=== PATIENT | male | born 1955 | race Caucasian/White ===

== ENCOUNTER 2017-02-22 13:29 | Outpatient (CLI) | payer OTHER | END 2017-02-22 13:30 | disposition home or self-care (01) | LOC: RT 13:29 | PROVIDERS: ATTEND Nurse Anesthetist, Certified Registered | DX: Z01.810 Encounter for preprocedural cardiovascular examination (principal); Z79.899 Other long term (current) drug therapy | CPT/HCPCS: 93005 ==

== ENCOUNTER 2017-02-28 07:19 | Day surgery (SDC) | payer OTHER ==
[2017-02-28] MEDS ORDERED: LACTATED RINGERS 1,000 ML IV ONE ×2 (07:24→10:04)
[2017-02-28] MEDS ORDERED: BUPIVACAINE 0.25%-EPI 1:200000 PF 30 ML VIAL SUBQ ONE ×2 (07:42)
[2017-02-28] MEDS ORDERED: SCOPOLAMINE PATCH TOP ONE (07:59)
[2017-02-28] MEDS ORDERED: ONDANSETRON 4 MG/2 ML VIAL IVP ONE (09:00)
[2017-02-28] MEDS ORDERED: LIDOCAINE-MPF 2% 5 ML VIAL IM ONE (09:00)
[2017-02-28] MEDS ORDERED: fentaNYL 100 MCG/2 ML VIAL IVP ONE (09:00)
[2017-02-28] MEDS ORDERED: KETOROLAC 30 MG/ML VIAL IVP ONE (09:00)
[2017-02-28] MEDS ORDERED: MIDAZOLAM 2 MG/2 ML VIAL IVP ONE (09:00)
[2017-02-28] MEDS ORDERED: PROPOFOL 200 MG/20 ML VIAL IVP ONE (09:00)
[2017-02-28] MEDS ORDERED: ACETAMINOPHEN 1,000 MG/100 ML 100 ML IV ONE (09:00)
[2017-02-28] MEDS ORDERED: DEXAMETHASONE 4 MG/ML VIAL IVP ONE (09:00)
[2017-02-28] MEDS: fentaNYL 100 MCG/2 ML VIAL ONE ×2 (10:14→10:31)
[2017-02-28] MEDS ORDERED: ONDANSETRON 4 MG/2 ML VIAL ONE (10:44)
[2017-02-28] MEDS ORDERED: HYDROcod/ACETAM 5/325 MG TABLET ONE (10:59)
[2017-02-28 11:47] VITALS: BP 172/89
--- NOTE | 2017-03-01 08:45 | OPERATIVE REPORT ---
DATE OF SERVICE: 02/28/2017 Physician: Alon Ceja MD DATE OF SURGERY: 02/28/2017 PREOPERATIVE DIAGNOSIS: Right ankle retained hardware in the medial malleolus and the fibula. POSTOPERATIVE DIAGNOSIS: Right ankle retained hardware in the medial malleolus and the fibula. PROCEDURE PERFORMED: Hardware removal from right ankle through 2 separate incisions medial and later al. SURGEON: Alon Ceja MD. ANESTHESIA: General, by Manoj Perez. INDICATIONS FOR SURGERY: The patient is a 62-year-old male with a healed right bimalleolar ankle fra cture, who presents with ankle pain due to retained hardware. He desires hardware removal. DESCRIPTION OF OPERATIVE PROCEDURE: The patient was taken to the operating room, given a general ane sthetic. He was in the supine position and a tourniquet was not used. A bolster was placed below his right hi p. His ankle was sterilely prepped and draped in standard fashion. After a surgical timeout, both medial and lateral incisions were made to expose hardware. The latera l side hardware was removed fairly uneventfully, removing the plate and finding the fracture well healed and remodeled. The medial side hardware was very difficult to remove due to deep placement of one of the pins requiring mini C-arm imaging to localize and remove that pin. The medial-side had healed well, and t he ankle joint cartilage appeared intact and the ankle was stable. The hardware ultimately was all removed. Irrigation was performed in the wounds, and closure was with a very limited amount of subcutaneous Vi cryl, followed by lorna. Sterile dressings were applied. The patient was placed in a below knee well-pa dded ankle splint and taken to the recovery room in stable condition. ESTIMATED BLOOD LOSS: Minimal. COMPLICATIONS: None. COUNTS: Sponge and needle counts correct. TD: 03/01/2017 08:47
== END 2017-02-28 07:20 | disposition home or self-care (01) ==
LOC: SDS 07:19
PROVIDERS: ATTEND Orthopaedic Surgery
PROC: 0SPF04Z Removal of Internal Fixation Device from Right Ankle Joint, Open Approach (ICD-10-PCS; principal; 2017-02-28 08:30)
DX: T84.81XA Embolism due to internal orthopedic prosthetic devices, implants and grafts, initial encounter (principal); T84.84XA Pain due to internal orthopedic prosthetic devices, implants and grafts, initial encounter; I25.10 Atherosclerotic heart disease of native coronary artery without angina pectoris; Z95.1 Presence of aortocoronary bypass graft; F17.210 Nicotine dependence, cigarettes, uncomplicated; I10 Essential (primary) hypertension
CPT/HCPCS: 20680; A9270; J0131; J3490; J7120

== ENCOUNTER 2017-03-04 09:51 | Emergency (ER) | payer OTHER ==
[2017-03-04 10:23] LABS: BASOPHILS # (AUTO) 0.1 10^3/uL (0.0-0.1); BASOPHILS % (AUTO) 0.8 %; EOSINOPHILS # (AUTO) 0.3 10^3/uL (0.0-0.7); EOSINOPHILS % (AUTO) 1.9 %; LYMPHOCYTES % (AUTO) 14.3 %; MEAN CORPUSCULAR HEMOGLOBIN 30.5 pg (27.0-31.0); MEAN CORPUSCULAR VOLUME 89.6 fL (80.0-94.0); MEAN PLATELET VOLUME 9.1 fL (7.4-11.4); MONOCYTES # (AUTO) 0.5 10^3/uL (0.0-1.0); MONOCYTES % (AUTO) 3.6 %; NEUTROPHILS # (AUTO) 11.2 10^3/uL (1.5-6.6); NEUTROPHILS % (AUTO) 79.4 %; PLT - PLATELET COUNT 227 10^3/uL (130-450); RED BLOOD COUNT 5.59 10^6/uL (4.70-6.10); RED CELL DISTRIBUTION WIDTH 14.3 % (12.0-15.0); WHITE BLOOD COUNT 14.2 x10^3/uL (4.8-10.8)
[2017-03-04 10:29] LABS: ALBUMIN 4.1 g/dL (3.2-5.5); ALBUMIN/GLOBULIN RATIO 1.1 (1.0-2.2); BILIRUBIN,TOTAL 0.9 mg/dL (0.2-1.0); CALCIUM 9.9 mg/dL (8.5-10.3); CREATININE 1.3 mg/dL (0.6-1.2)
--- NOTE | 2017-03-04 10:37 | ED Physician Documentation ---
PD HPI DYSPNEA - Stated complaint Stated Complaint: NAUSEA,VOMITING,DIZZINESS - Chief complaint Chief Complaint: Allergic Rx - History obtained from History obtained from: Patient, Family - History of Present Illness Timing - onset: Today Timing - onset during: Rest Timing - duration: Hours, Days Timing - details: Gradual onset, Still present Inciting event(s): Other (recent surgery to remove hardware. Alcohol withdrawal day #4.) Worsened by: Exertion Associated symptoms: Palpitations, Diaphoresis. No: Fever, Cough, Wheezing, Chest pain / discomfort Similar symptoms before: Has not had sx before Recently seen: Surgery - Additional information Additional information: 62-year-old male has had surgery to remove hardware from his right ankle done 3 days ago. He indicates that he usually drinks vodka and beer daily and regularly. He stopped cold turkey prior to his operation. He is on day #4 of alcohol withdrawal. He is having good control of his pain and is able to bear weight on his foot. He does not feel well and he has developed some shortness of breath associated with diaphoresis. He denies any chest pain. He did try to drink beer this morning when he found out that he thought he was suffering from alcohol withdrawal and he probably vomited. He still has some nausea. Review of Systems Constitutional: denies: Fever, Myalgias Eyes: denies: Decreased vision Ears: denies: Ear pain Nose: denies: Rhinorrhea / runny nose, Congestion Throat: reports: Other (voice is higher). denies: Sore throat Cardiac: reports: Palpitations. denies: Chest pain / pressure Respiratory: reports: Dyspnea. denies: Cough GI: reports: Nausea, Vomiting. denies: Abdominal Pain : denies: Dysuria, Frequency Skin: denies: Rash Musculoskeletal: reports: Extremity pain, Pain with weight bearing. denies: Neck pain, Back pain Neurologic: denies: Generalized weakness, Focal weakness, Numbness PD PAST MEDICAL HISTORY - Past Medical History Cardiovascular: High cholesterol, Coronary artery disease, Angina Respiratory: None Neuro: None Endocrine/Autoimmune: None GI: GERD : Benign prostate hypertrophy HEENT: None Psych: None Musculoskeletal: None Derm: None, Other - Past Surgical History Past Surgical History: Yes Ortho: Rotator cuff repair Cardiovascular: CABG - Present Medications Home Medications: Ambulatory Orders Medication Instructions Recorded Confirmed Atorvastatin [Lipitor] 20 tab PO QPM 06/05/14 02/28/17 Carvedilol [Coreg] 25 mg PO BID 06/05/14 02/28/17 Clopidogrel [Plavix] 75 mg PO DAILY 06/05/14 02/28/17 Lisinopril 40 mg PO DAILY 06/05/14 02/28/17 amLODIPine [Norvasc] 10 mg PO DAILY 06/05/14 02/28/17 hydroCHLOROthiazide 50 mg PO DAILY 06/05/14 02/28/17 [Hydrochlorothiazide] Aspirin EC [Ecotrin] 325 mg PO BID #60 tablet 11/12/15 Lorazepam [Ativan] 1 - 2 mg PO Q6HR PRN #30 tablet 03/04/17 - Allergies Allergies/Adverse Reactions: Allergies Allergy/AdvReac Type Severity Reaction Status Date / Time No Known Drug Allergies Allergy Verified 11/10/15 09:55 - Social History Does the pt smoke?: Yes Smoking Status: Current every day smoker Does the pt drink ETOH?: Yes Does the pt have substance abuse?: No - Immunizations Immunizations are current?: Yes - POLST Patient has POLST: No PD ED PE NORMAL - Vitals Vital signs reviewed: Yes (hypertensive ) - General General: Alert and oriented X 3, No acute distress, Well developed/nourished - HEENT HEENT: Atraumatic, PERRL, EOMI, Other (dry mucous membranes) - Neck Neck: Supple, no meningeal sign, No bony TTP - Cardiac Cardiac: RRR, No murmur - Respiratory Respiratory: No respiratory distress, Clear bilaterally, Other (well healed CABG scar) - Abdomen Abdomen: Soft, Non tender - Back Back: No CVA TTP, No spinal TTP - Derm Derm: Normal color, Warm and dry, No rash - Extremities Extremities: No deformity, Other (There are bandages to the right LE and these are not taken down for examination. The distal n/v is intact. ) - Neuro Neuro: No motor deficit, No sensory deficit Eye Opening: Spontaneous Motor: Obeys Commands Verbal: Oriented GCS Score: 15 - Psych Psych: Normal mood, Normal affect Results - Vitals Vitals: Vital Signs - 24 hr 03/04/17 03/04/17 03/04/17 09:58 11:32 11:59 Temperature 36.5 C Heart Rate 60 96 109 H Respiratory 20 18 16 Rate Blood Pressure 133/111 H 117/78 117/78 O2 Saturation 98 95 96 03/04/17 03/04/17 03/04/17 13:29 14:14 14:23 Temperature 36.8 C Heart Rate 60 103 H 84 Respiratory 18 18 Rate Blood Pressure 125/93 H 122/90 H 116/86 H O2 Saturation 96 94 03/04/17 03/04/17 03/04/17 14:28 14:33 14:47 Temperature Heart Rate 72 84 96 Respiratory Rate Blood Pressure 109/88 H 110/88 H 126/95 H O2 Saturation 03/04/17 03/04/17 03/04/17 15:00 17:00 17:07 Temperature Heart Rate 80 105 H 101 H Respiratory 18 Rate Blood Pressure 118/96 H 127/75 123/92 H O2 Saturation 99 03/04/17 03/04/17 03/04/17 17:20 17:30 17:32 Temperature Heart Rate 80 76 77 Respiratory 20 19 21 Rate Blood Pressure 120/86 H 120/84 H 140/79 H O2 Saturation 96 95 97 03/04/17 03/04/17 17:51 17:52 Temperature Heart Rate 80 80 Respiratory 16 16 Rate Blood Pressure 120/79 149/89 H O2 Saturation 95 95 Oxygen O2 Source [] RA, increased to 95% O2 Source [] on RA, increased to 95% O2 Source Room air - EKG (time done) 1015 Rate: Rate (enter#) (102) Rhythm: Atrial fibrillation Ischemia: ST depression Compare to prior EKG: Unchanged from prior EKG (SPT 12-27-[address] depression and afib have developed. ) Computer interpretation: Agree with computer - Labs Labs: Laboratory Tests 03/04/17 03/04/17 03/04/17 10:10 10:10 10:10 WBC 14.2 H RBC 5.59 Hgb 17.0 Hct 50.1 MCV 89.6 MCH 30.5 MCHC 34.0 RDW 14.3 Plt Count 227 MPV 9.1 Neut # 11.2 H Lymph # 2.0 [place] # 0.5 Eos # 0.3 Baso # 0.1 Absolute Nucleated RBC 0.00 Nucleated RBC % 0.0 Sodium 139 Potassium 3.9 Chloride 99 L Carbon Dioxide 26 Anion Gap 14.0 H BUN 19 Creatinine 1.3 H Estimated GFR (MDRD) 56 L Glucose 146 H Calcium 9.9 Total Bilirubin 0.9 AST 19 ALT 21 Alkaline Phosphatase 71 Troponin I < 0.04 Total Protein 8.0 Albumin 4.1 Globulin 3.9 Albumin/Globulin Ratio 1.1 Lipase 17 L Urine Color Urine Clarity Urine pH Ur Specific [place] Urine Protein Urine Glucose (UA) Urine Ketones Urine Occult Blood Urine Nitrite Urine Bilirubin Urine Urobilinogen Ur Leukocyte Esterase Urine RBC Urine WBC Ur Squamous Epith Cells Urine Bacteria Urine Casts Ur Microscopic Review Urine Culture Comments 03/04/17 13:10 WBC RBC Hgb Hct MCV MCH MCHC RDW Plt Count MPV Neut # Lymph # [place] # Eos # Baso # Absolute Nucleated RBC Nucleated RBC % Sodium Potassium Chloride Carbon Dioxide Anion Gap BUN Creatinine Estimated GFR (MDRD) Glucose Calcium Total Bilirubin AST ALT Alkaline Phosphatase Troponin I Total Protein Albumin Globulin Albumin/Globulin Ratio Lipase Urine Color YELLOW Urine Clarity CLEAR Urine pH 7.0 Ur Specific [place] 1.020 Urine Protein 30 H Urine Glucose (UA) NEGATIVE Urine Ketones NEGATIVE Urine Occult Blood NEGATIVE Urine Nitrite NEGATIVE Urine Bilirubin NEGATIVE Urine Urobilinogen 0.2 (NORMAL) Ur Leukocyte Esterase NEGATIVE Urine RBC 0-5 Urine WBC 0-3 Ur Squamous Epith Cells RARE Squamous Urine Bacteria Rare Urine Casts 6-10 Hyaline Casts Ur Microscopic Review INDICATED Urine Culture Comments NOT INDICATED Procedures - IVC sono (time) 1015 Bedside IVC sono: IVC measures (cm) (0.98), IVC collapsed c insp (cm) (complete) , Dehydration PD MEDICAL DECISION MAKING - ED course Complexity details: reviewed old records, reviewed results, re-evaluated patient , considered differential, d/w patient, d/w family ED course: 62-year-old male with what appears to be acute alcohol withdrawal is also a bit dehydrated. He is administered an intravenous banana bag and 2 mg of Ativan. He has marked improvement with the use of the Ativan and despite improvement in his volume his rate still is over 110 and he is in atrial fibrillation. He is not normally in atrial fibrillation and does not have a prior history of atrial fibrillation. He is administered diltiazem 20 mg intravenously with reduction in his rate and he does not convert. He is subsequently administered a second dose of diltiazem 25 mg intravenously and his rate is well controlled in the 80s but he still does not convert. I have discussed with the patient that it appears he is tolerating this rhythm and the expectation is that he will convert in the next 1-2 days and he can safely do this as an outpatient. He will follow-up with his primary if he is not back in sinus rhythm in 2 days time. He had prompt improvement in his withdrawal symptoms with 2 mg of intravenous Ativan and this did last for the duration of his emergency department visit. The patient's [id number] score is 2 for htn and prior GA and he is currently on aspirin and has had recent surgery. He is not anti-coagulated today. Departure - Departure Disposition: 01 Home, Self Care Clinical Impression: New onset a-fib Alcohol withdrawal Qualifiers: Complication of substance-induced condition: with unspecified complication Qualified Code(s): F10.239 - Alcohol dependence with withdrawal, unspecified Condition: Stable Instructions: ED Afib, ED Withdrawal Alcohol Follow-Up: JOLENE VINCENT MD [Primary Care Provider] - Prescriptions: Lorazepam [Ativan] 1 - 2 mg PO Q6HR PRN #30 tablet PRN Reason: withdrawal symptoms Comments: Today you are in atrial fibrillation and your rate appears well controlled and you appear to be "tolerating" it. We expect you will convert to a normal rhythm in the next day. Follow up with your primary care doctor on Monday for re- evaluation. Your doctor will talk to you about anti-coagulation and your risk for stroke and may refer you to a exercise planner.
[2017-03-04] MEDS ORDERED: LORazepam 2 MG/ML VIAL IVP STA ×2 (10:58→18:19)
[2017-03-04] MEDS ORDERED: MAGNESIUM SULFATE 2 GRAM 2 GM/50 ML BAG IV STA (11:00)
[2017-03-04] MEDS ORDERED: MULTIVITAMIN 10 ML in SODIUM CHLORIDE 0.9% 1,000 ML IV STA (11:00)
[2017-03-04] MEDS ORDERED: THIAMINE INJ 100 MG, FOLIC ACID INJ 1 MG in SODIUM CHLORIDE 0.9% 100ML 100 ML IV STA (11:00)
[2017-03-04] MEDS ORDERED: THIAMINE 100 MG/1 ML 2 ML MDV ONE (11:27)
[2017-03-04 13:21] LABS: BILIRUBIN,URINE NEGATIVE (NEGATIVE); GLUCOSE, URINE (UA) NEGATIVE (NEGATIVE); KETONES,URINE (UA) NEGATIVE (NEGATIVE); LEUKOCYTE ESTERASE, URINE NEGATIVE (NEGATIVE); NITRITE,URINE NEGATIVE (NEGATIVE); OCCULT BLOOD,URINE NEGATIVE (NEGATIVE); PROTEIN,URINE 30 mg/dL (NEGATIVE); UROBILINOGEN,URINE 0.2 (NORMAL) E.U./dL (NORMAL)
[2017-03-04 13:34] LABS: CLARITY,URINE CLEAR (CLEAR)
[2017-03-04 13:47] LABS: BACTERIA,URINE Rare /HPF (None Seen); CASTS, URINE 6-10 Hyaline Casts /LPF; RBC,URINE 0-5 /HPF (0-5); SQUAMOUS EPITHELIAL CELL,UR RARE Squamous (<= Few)
[2017-03-04] MEDS ORDERED: diltiaZEM INJ 5 MG/ML VIAL IVP STA ×2 (14:04→16:53)
[2017-03-04 18:53] VITALS: BP 148/92
== END 2017-03-04 18:51 | disposition home or self-care (01) ==
LOC: ED 09:51
DX: I48.91 Unspecified atrial fibrillation (principal); F10.239 Alcohol dependence with withdrawal, unspecified; E78.00 Pure hypercholesterolemia, unspecified; I25.10 Atherosclerotic heart disease of native coronary artery without angina pectoris; Z95.1 Presence of aortocoronary bypass graft
CPT/HCPCS: 36415; 80053; 81001; 83690; 84484; 85025; 93005; 96365; 96367; 96368; 96375; 96376; 99285; J2060; J3411; 81003; 87086

== ENCOUNTER 2021-12-02 12:28 | Emergency (ER) | payer OTHER ==
[2021-12-02] MEDS ORDERED: EPINEPHrine 1 MG/ML AMP IM STA (12:48)
[2021-12-02] MEDS ORDERED: diphenhydrAMINE INJ 50 MG/ML VIAL IVP STA (12:48)
[2021-12-02] MEDS ORDERED: FAMOTIDINE 20 MG/2 ML VIAL IVP STA (12:48)
[2021-12-02] MEDS ORDERED: methylPREDNISolone SUCCINATE 125 MG/2 ML VIAL IVP STA (12:48)
[2021-12-02] MEDS ORDERED: TRANEXAMIC ACID 1,000 MG in SODIUM CHLORIDE 0.9% 100ML 100 ML IV STA (12:50)
--- NOTE | 2021-12-02 12:54 | ED Physician Documentation ---
PD HPI HEENT - Stated complaint Stated Complaint: TOUNGE SWELLING - Chief complaint Chief Complaint: Resp - History obtained from History obtained from: Patient - History of Present Illness Timing - onset: Today (299) - Additional information Additional information: 66-year-old male with history of A. fib on Eliquis, hypertension, hyperlipidemia presents by private vehicle for tongue swelling since 299 today. Patient tried to take 2 Benadryl at home however this did not improve and so he presented to the ER for evaluation. Patient's states that this happened once before at an outside hospital after sinus surgery, she states that they were able to improve him with medications and he did not require intubation. Patient states that he can swallow with great difficulty, his voice sounds hoarse to him. He states he has no difficulty breathing however Review of Systems Ten Systems: 10 systems reviewed and negative Constitutional: denies: Fever, Chills, Myalgias Throat: reports: Other (Tongue swelling, hoarseness). denies: Dental pain / toothache, Oral lesions / sores, Sore throat Respiratory: denies: Dyspnea, Cough, Wheezing Skin: denies: Rash, Lesions, Abrasion (s) PD PAST MEDICAL HISTORY - Past Medical History Cardiovascular: High cholesterol, Coronary artery disease, Angina Respiratory: None Endocrine/Autoimmune: None GI: GERD : Benign prostate hypertrophy HEENT: None Psych: None Musculoskeletal: None Derm: None, Other - Past Surgical History Past Surgical History: Yes Ortho: Rotator cuff repair Cardiovascular: CABG - Present Medications Home Medications: Ambulatory Orders Medication Instructions Recorded Confirmed Atorvastatin [Lipitor] 20 tab PO QPM 06/05/14 02/28/17 Carvedilol [Coreg] 25 mg PO BID 06/05/14 02/28/17 Clopidogrel [Plavix] 75 mg PO DAILY 06/05/14 02/28/17 amLODIPine [Norvasc] 10 mg PO DAILY 06/05/14 02/28/17 hydroCHLOROthiazide 50 mg PO DAILY 06/05/14 02/28/17 [Hydrochlorothiazide] lisinopriL [Lisinopril] 40 mg PO DAILY 06/05/14 02/28/17 Aspirin EC [Ecotrin] 325 mg PO BID #60 tablet 11/12/15 Lorazepam [Ativan] 1 - 2 mg PO Q6HR PRN #30 tablet 03/04/17 - Allergies Allergies/Adverse Reactions: Allergies Allergy/AdvReac Type Severity Reaction Status Date / Time No Known Drug Allergies Allergy Verified 11/10/15 09:55 - Social History Does the pt smoke?: Yes Smoking Status: Current every day smoker Does the pt drink ETOH?: Yes Does the pt have substance abuse?: No - Immunizations Immunizations are current?: Yes - POLST Patient has POLST: No PD ED PE NORMAL - Vitals Vital signs reviewed: Yes - General General: Alert and oriented X 3, No acute distress, Well developed/nourished - HEENT HEENT: Atraumatic, PERRL, Other (grossly enlarged tongue) - Cardiac Cardiac: RRR, No murmur - Respiratory Respiratory: No respiratory distress, Clear bilaterally - Abdomen Abdomen: Soft, Non tender, Non distended - Derm Derm: Normal color, Warm and dry, No rash - Extremities Extremities: No deformity, No tenderness to palpate, Normal ROM s pain - Neuro Neuro: Alert and oriented X 3, gambling box person 2-12 intact, No motor deficit, No sensory deficit, Normal speech - Psych Psych: Normal mood, Normal affect Results - Vitals Vitals: Vital Signs - 24 hr 12/02/21 12/02/21 12/02/21 12:36 13:20 14:30 Temperature 2.5 C L Heart Rate 71 73 70 Respiratory 20 21 26 H Rate Blood Pressure 124/84 H 138/93 H 146/90 H O2 Saturation 98 97 97 12/02/21 12/02/21 12/02/21 16:10 16:30 17:30 Temperature Heart Rate 78 90 82 Respiratory 18 26 H 21 Rate Blood Pressure 145/95 H 135/97 H 147/94 H O2 Saturation 96 95 97 Oxygen O2 Source [With Activity] RA, increased to 95% O2 Source [Without Activity] on RA, increased to 95% O2 Source Room air - Labs Labs: Laboratory Tests 12/02/21 12/02/21 12/02/21 12:55 12:55 12:55 WBC 9.7 RBC 4.48 L Hgb 13.6 L Hct 40.3 L MCV 90.0 MCH 30.4 MCHC 33.7 RDW 13.9 Plt Count 207 MPV 10.7 Neut # (Auto) 6.8 H Lymph # (Auto) 1.9 [place] # (Auto) 0.6 Eos # (Auto) 0.3 Baso # (Auto) 0.1 Absolute Nucleated RBC 0.00 Nucleated RBC % 0.0 Sodium 141 Potassium 3.6 Chloride 101 Carbon Dioxide 30 Anion Gap 10.0 BUN 20 Creatinine 1.0 Estimated GFR (MDRD) 75 L Glucose 105 H Calcium 9.2 Total Bilirubin 1.2 H AST 18 ALT 19 Alkaline Phosphatase 79 Total Protein 7.3 Albumin 3.8 Globulin 3.5 Albumin/Globulin Ratio 1.1 Blood Type O POSITIVE Blood Type Recheck Antibody Screen NEGATIVE 12/02/21 13:14 WBC RBC Hgb Hct MCV MCH MCHC RDW Plt Count MPV Neut # (Auto) Lymph # (Auto) [place] # (Auto) Eos # (Auto) Baso # (Auto) Absolute Nucleated RBC Nucleated RBC % Sodium Potassium Chloride Carbon Dioxide Anion Gap BUN Creatinine Estimated GFR (MDRD) Glucose Calcium Total Bilirubin AST ALT Alkaline Phosphatase Total Protein Albumin Globulin Albumin/Globulin Ratio Blood Type Blood Type Recheck O POSITIVE Antibody Screen PD MEDICAL DECISION MAKING - ED course ED course: Patient presenting with angioedema. Patient has remarkable tongue swelling, however is able to breathe and is saturations are 99% on room air. Patient states that this happened 1 time in the past and they were able to correct it with medications. We will trial medication regimen, however if no improvement will aggressively control airway. 1320: Patient has received Solu-Medrol, epinephrine, Benadryl, Pepcid, TXA is hanging. Patient states that he is already feeling better and he can tell an improvement in his voice. Patient was observed for numerous hours in the emergency department, his tongue was observed to return back to normal size confirmed by the patient and his . Patient stated that he was ready to leave and eager to go home. Patient counseled that until the definitive cause of his angioedema can be found he is not to take any MORE inhibitors, or medicines and in "pril". He was counseled to follow-up with his primary care physician and to return immediately to the em ergency department if he noticed swelling in his tongue again. Patient discharged home to the care of his in stable condition - Critical Care Time(min): 30 Comments: Extremely close airway monitoring with frequent reassessments. Time Includes: Direct patient care, Reassess patient, Coordinate care Departure - Departure Disposition: 01 Home, Self Care Clinical Impression: Angioedema Condition: Stable Instructions: ED Angioedema Comments: You are seen today for swelling of your tongue, this is called angioedema. We were able to reverse the swelling with medications. From today onwards I do not recommend that you take any MORE inhibitors. These medications commonly end in "pril" like lisinopril. Please follow-up soon as possible with your primary care physician for medication changes for your blood pressure management. Discharge Date/Time: 12/02/21 17:35
[2021-12-02 13:01] LABS: BASOPHILS # (AUTO) 0.1 10^3/uL (0.0-0.1); BASOPHILS % (AUTO) 0.9 %; EOSINOPHILS # (AUTO) 0.3 10^3/uL (0.0-0.7); EOSINOPHILS % (AUTO) 3.2 %; HCT - HEMATOCRIT 40.3 % (42.0-52.0); HGB - HEMOGLOBIN 13.6 g/dL (14.0-18.0); LYMPHOCYTES # (AUTO) 1.9 10^3/uL (1.5-3.5); LYMPHOCYTES % (AUTO) 19.1 %; MEAN CORPUSCULAR HEMOGLOBIN 30.4 pg (27.0-31.0); MEAN CORPUSCULAR HGB CONC 33.7 g/dL (32.0-36.0); MEAN PLATELET VOLUME 10.7 fL (7.4-11.4); MONOCYTES # (AUTO) 0.6 10^3/uL (0.0-1.0); MONOCYTES % (AUTO) 5.7 %; NEUTROPHILS # (AUTO) 6.8 10^3/uL (1.5-6.6); NEUTROPHILS % (AUTO) 70.8 %; PLT - PLATELET COUNT 207 10^3/uL (130-450); RED BLOOD COUNT 4.48 10^6/uL (4.70-6.10); RED CELL DISTRIBUTION WIDTH 13.9 % (12.0-15.0); WHITE BLOOD COUNT 9.7 x10^3/uL (4.8-10.8)
[2021-12-02 13:16] LABS: ALBUMIN 3.8 g/dL (3.2-5.5); ALBUMIN/GLOBULIN RATIO 1.1 (1.0-2.2); BILIRUBIN,TOTAL 1.2 mg/dL (0.2-1.0); CALCIUM 9.2 mg/dL (8.5-10.3); POTASSIUM 3.6 mmol/L (3.5-5.0); TOTAL PROTEIN 7.3 g/dL (6.7-8.2)
[2021-12-02] MEDS ORDERED: TRANEXAMIC ACID 1,000 MG/10 ML VIAL ONE (13:17)
[2021-12-02 17:35] VITALS: BP 147/94
== END 2021-12-02 17:35 | disposition home or self-care (01) ==
LOC: ED 12:28
DX: T78.3XXA Angioneurotic edema, initial encounter (principal); I48.91 Unspecified atrial fibrillation; Z79.01 Long term (current) use of anticoagulants; I10 Essential (primary) hypertension; E78.5 Hyperlipidemia, unspecified; I25.10 Atherosclerotic heart disease of native coronary artery without angina pectoris; Z95.1 Presence of aortocoronary bypass graft; F17.200 Nicotine dependence, unspecified, uncomplicated; Z79.02 Long term (current) use of antithrombotics/antiplatelets; Z79.82 Long term (current) use of aspirin; Z79.899 Other long term (current) drug therapy
CPT/HCPCS: 36415; 80053; 85025; 86850; 86900; 86901; 93005; 96372; 96374; 96375; 99285; 99291; J1200

== ENCOUNTER 2022-10-15 13:23 | Emergency (ER) | payer OTHER ==
[2022-10-15 13:41] VITALS: O2SAT 96
[2022-10-15] MEDS ORDERED: HYDROcod/ACETAM 5/325 MG TABLET PO STA (13:58)
--- NOTE | 2022-10-15 14:09 | ED Physician Documentation ---
History of Present Illness - Stated complaint Stated Complaint: RT SIDE PX - Chief complaint Chief Complaint: Ext Problem - Additonal information Additional information: 67-year-old male presents to the emergency department for evaluation of acute neck pain and pain radiating to the right arm. He reports he was trying to install gutters on his roof when he had to bend his neck down to fit under the gutter while on the ladder. He felt a pop in the right neck with immediate pain radiating down the arm. He has no paresthesias. However the patient does have a history of bilateral rotator cuff injuries as well as significant degenerative disc disease of the neck. Patient does have a history of A-fib and is anticoagulated. There was no fall associated with this injury. Review of Systems Constitutional: reports: Reviewed and negative Throat: reports: Reviewed and negative Cardiac: reports: Reviewed and negative Respiratory: reports: Reviewed and negative GI: reports: Reviewed and negative Musculoskeletal: reports: Neck pain, Joint pain PD PAST MEDICAL HISTORY - Past Medical History Cardiovascular: High cholesterol, Coronary artery disease, Angina Respiratory: None Endocrine/Autoimmune: None GI: GERD : Benign prostate hypertrophy HEENT: None Psych: None Musculoskeletal: None Derm: None, Other - Past Surgical History Past Surgical History: Yes Ortho: Rotator cuff repair Cardiovascular: CABG - Present Medications Home Medications: Ambulatory Orders Medication Instructions Recorded Confirmed Atorvastatin [Lipitor] 20 tab PO QPM 06/05/14 02/28/17 Clopidogrel [Plavix] 75 mg PO DAILY 06/05/14 10/15/22 amLODIPine [Norvasc] 10 mg PO DAILY 06/05/14 10/15/22 carvediloL [Coreg] 25 mg PO BID 06/05/14 10/15/22 hydroCHLOROthiazide 50 mg PO DAILY 06/05/14 10/15/22 [Hydrochlorothiazide] lisinopriL [Lisinopril] 40 mg PO DAILY 06/05/14 10/15/22 Aspirin EC [Ecotrin] 325 mg PO BID #60 tablet 11/12/15 Lorazepam [Ativan] 1 - 2 mg PO Q6HR PRN #30 tablet 03/04/17 10/15/22 HYDROcod/ACETAM 5/325 [Meridian 5/325] 1 tablet PO BID PRN #10 tablet 10/15/22 - Allergies Allergies/Adverse Reactions: Allergies Allergy/AdvReac Type Severity Reaction Status Date / Time No Known Drug Allergies Allergy Verified 11/10/15 09:55 - Social History Does the pt smoke?: Yes Smoking Status: Current every day smoker Does the pt drink ETOH?: Yes Does the pt have substance abuse?: No - Immunizations Immunizations are current?: Yes - POLST Patient has POLST: No PD ED PE NORMAL - General General: Alert and oriented X 3, No acute distress - Neck Neck: Other (Patient has normal lateral rotation as well as forward flexion. However rotation to the right and left was painful. Rotation to the right caused increased pain radiating down the right arm. No midline tenderness was noted.) - Extremities Extremities: No deformity, Other (Bilateral tenderness of the shoulders with impingement testing which is not new and consistent with his history of rotator cuff deformity. No paresthesias of either arm and strength is equal bilaterally.) - Neuro Neuro: Alert and oriented X 3 Eye Opening: Spontaneous Motor: Obeys Commands Verbal: Oriented GCS Score: 15 Results - Vitals Vitals: Vital Signs - 24 hr 10/15/22 13:37 Temperature 36 C L Heart Rate 77 Respiratory 20 Rate Blood Pressure 115/87 H O2 Saturation 96 Oxygen O2 Source [With Activity] RA, increased to 95% O2 Source [Without Activity] on RA, increased to 95% O2 Source Room air - Rads (name of study) cervical CT Relevant Findings:: Final report received (No evidence of fracture or traumatic malalignment. Multilevel degenerative disc disease and arthropathy results in moderate to severe central canal stenosis at C4-C6) PD Medical Decision Making - ED course Complexity details: reviewed results, re-evaluated patient, d/w patient ED course: Six 7-year-old male who has a history of A-fib anticoagulated on Eliquis presents emergency department for evaluation of acute right-sided neck pain with radiation down the right arm. Harrison a pop in his neck when he was replacing gutters on his roof. History is quite suggestive of radiculopathy. CT completed shows significant degenerative disc disease most prominent at C4-C6 resulting in moderate to severe central canal stenosis. Patient was administered 2 Vicodin here in the ER with good resolution of symptoms. Due to anticoagulation patient is not a good candidate for NSAIDs. He is scheduled to see his PCP this upcoming Monday. He is advised to request referral to neurosurgery or spinal surgery for further evaluation and management of this disorder. The usual emergent return precautions for failure symptoms resolve or markedly worsen was discussed. I am prescribing a short course of short-acting opioid pain medication for this patient. I have reviewed the patients STE[employer]ER and no concerning findings were noted. I have discussed that the opioids are for short term therapy only, and will not be refilled from the ED. Departure - Departure Disposition: Home, Self Care Clinical Impression: Cervical radiculopathy at C5, Cervical stenosis of spinal canal Condition: Stable Record reviewed to determine appropriate education?: Yes Prescriptions: HYDROcod/ACETAM 5/325 [Meridian 5/325] 1 tablet PO BID PRN #10 tablet PRN Reason: Pain Comments: Nile he felt a pop in your neck when you are replacing gutters on your roof today. Since then you have had pain on the right side of your neck with radiation down your right arm. Your history is suggestive what is called cervical radiculopathy when the nerves in the neck become pinched resulting in radiating pain. The CT scan shows significant to severe degenerative disc disease in your neck resulting in central canal stenosis of the C4-C6 vertebrae. This is causing the pinching pain down your arm. I have sent a prescription for limited amount of Meridian to the [facility] in [place]. When you see your primary doctor on Monday you should request referral to neurosurgery or spine surgery for further evaluation and management of the stenosis. I am prescribing a short course of narcotic pain medication for you. These are potentially dangerous and addictive medications that should be used carefully. These medications may constipate you. Take an iccv-lwh-dqcgbun stool softener (docusate) twice daily with plenty of water while taking these medications. If you go 24 hours without a bowel movement, take ndvj-kkd-swzqblr miralax, per package instructions. Do not drink or drive while taking these medications. If you received narcotic or sedating medications while in the emergency department, do not drive for 24 hours. Store this medication in a safe, secure place and out of reach of children. It is a violation of federal law to give or sell this medication to another person or to use in a manner other than prescribed. The ED will not refill narcotic prescriptions, including prescriptions lost or stolen. To dispose of unwanted medications: 1. [facility] at [address] in [place] has a medication drop box. They accept prescription medications (in pill form) Monday through Monday 9:00 a.m. to 5:00 p.m. 2. [facility] [employer] accepts prescription medications (in pill form only) for disposal year round. Call for more information. 3. Contact the [facility] for the next [facility] sponsored prescription drug collection event. , [phone], or [phone]; Note that many narcotic pain relievers also contain Tylenol/acetaminophen. Please ensure that your total dose of acetaminophen from all sources does not exceed 3 g (3000 mg) per day. Forms: PCP List
--- NOTE | 2022-10-15 15:30 | CT Report ---
PROCEDURE: CERVICAL SPINE WO INDICATIONS: pop in neck, pain radiating down right arm TECHNIQUE: Noncontrast 3 mm thick sections acquired from the skull base to the T4 level. Sagittal and coronal r eformats were then constructed. For radiation dose reduction, the following was used: automated exp osure control, adjustment of mA and/or kV according to patient size. COMPARISON: None. FINDINGS: Image quality: Excellent. Bones: No fractures or dislocations. Visualized superior ribs are intact. Disc space narrowing and endplate sclerosis noted at C4-5 and C5-6 with hypertrophic facet and uncovertebral joints and poste rior osteophytes resulting in moderate to severe central and moderate bilateral foraminal stenosis. G rade 1 mild degenerative anterior spinal listhesis C6-7. Midline sternal wires noted Soft tissues: Prevertebral soft tissues are normal in thickness. No paravertebral hematomas. No ap ical pneumothoraces. IMPRESSION: No evidence of fracture or traumatic malalignment. Multilevel degenerative disc disease and arthropathy results in moderate to severe central stenosis a t C4-5 and C5-6 Reviewed by: Oseas Acevedo MD on 10/15/2022 2:28 PM [facility] Approved by: Oseas Acevedo MD on 10/15/2022 2:28 PM [facility] Station ID: [id number]
[2022-10-15 16:00] VITALS: BP 136/86
== END 2022-10-15 15:59 | disposition home or self-care (01) ==
LOC: ED 13:23
DX: M50.122 Cervical disc disorder at C5-C6 level with radiculopathy (principal); M48.02 Spinal stenosis, cervical region; I48.91 Unspecified atrial fibrillation; Z79.01 Long term (current) use of anticoagulants; F17.200 Nicotine dependence, unspecified, uncomplicated
CPT/HCPCS: 72125; 99284; A9270

== ENCOUNTER 2023-03-26 12:48 | Emergency (ER) | payer OTHER ==
[2023-03-26] MEDS ORDERED: HYDROcod/ACETAM 5/325 MG TABLET PO STA (13:05)
--- NOTE | 2023-03-26 13:06 | ED Physician Documentation ---
PD HPI MAJOR TRAUMA - Stated complaint Stated Complaint: GLF, MULT INJURIES - Chief complaint Chief Complaint: Trauma Hd/Nk - History obtained from History obtained from: Patient - Additional information Additional information: 68-year-old gentleman with history of A-fib on Eliquis, fall last night. He was working on his own porch and fell. He does not exactly remember the mechanism, does not think he hit his head but cannot promise me he did not either. Major complaints are left rib pain, bilateral elbow injuries, and right knee injury. PD PAST MEDICAL HISTORY - Past Medical History Past Medical History: Yes Cardiovascular: High cholesterol, Coronary artery disease, Angina Respiratory: None Endocrine/Autoimmune: None GI: GERD : Benign prostate hypertrophy HEENT: None Psych: None Musculoskeletal: None Derm: None, Other - Past Surgical History Past Surgical History: Yes Ortho: Rotator cuff repair Cardiovascular: CABG - Present Medications Home Medications: Ambulatory Orders Medication Instructions Recorded Confirmed Atorvastatin [Lipitor] 20 tab PO QPM 06/05/14 02/28/17 Clopidogrel [Plavix] 75 mg PO DAILY 06/05/14 10/15/22 amLODIPine [Norvasc] 10 mg PO DAILY 06/05/14 10/15/22 carvediloL [Coreg] 25 mg PO BID 06/05/14 10/15/22 hydroCHLOROthiazide 50 mg PO DAILY 06/05/14 10/15/22 [Hydrochlorothiazide] lisinopriL [Lisinopril] 40 mg PO DAILY 06/05/14 10/15/22 Aspirin EC [Ecotrin] 325 mg PO BID #60 tablet 11/12/15 Lorazepam [Ativan] 1 - 2 mg PO Q6HR PRN #30 tablet 03/04/17 10/15/22 HYDROcod/ACETAM 5/325 [Colbert 5/325] 1 tablet PO BID PRN #10 tablet 10/15/22 HYDROcod/ACETAM 5/325 [Colbert 5/325] 1 - 2 tab PO Q6H PRN #10 tablet 03/26/23 - Allergies Allergies/Adverse Reactions: Allergies Allergy/AdvReac Type Severity Reaction Status Date / Time No Known Drug Allergies Allergy Verified 03/26/23 12:54 - Social History Does the pt smoke?: Yes Smoking Status: Current every day smoker Does the pt drink ETOH?: Yes Does the pt have substance abuse?: No - Immunizations Immunizations are current?: Yes - POLST Patient has POLST: No PD ED PE NORMAL - Vitals Vital signs reviewed: Yes - General General: Alert and oriented X 3, No acute distress - HEENT HEENT: PERRL, EOMI - Neck Neck: Supple, no meningeal sign, No bony TTP - Cardiac Cardiac: RRR, No murmur - Respiratory Respiratory: No respiratory distress, Other (Splinting his breaths and very tender to the left lower chest wall without bruising.) - Abdomen Abdomen: Non tender - Back Back: No CVA TTP, No spinal TTP - Derm Derm: Normal color, Warm and dry - Extremities Extremities: Other (He has contusions to both elbows with limited range of motion especially on the left. There is also a large contusion over the right knee, but relatively normal gait and minimal tenderness.) - Neuro Neuro: Alert and oriented X 3, Normal speech Eye Opening: Spontaneous Motor: Obeys Commands Verbal: Oriented GCS Score: 15 - Psych Psych: Normal mood, Normal affect Results - Vitals Vitals: Vital Signs - 24 hr 03/26/23 03/26/23 03/26/23 12:55 12:57 14:57 Temperature 36.8 C Heart Rate 68 69 68 Respiratory 18 16 16 Rate Blood Pressure 149/80 H 150/98 H 157/90 H O2 Saturation 98 94 96 Oxygen O2 Source [With Activity] RA, increased to 95% O2 Source [Without Activity] on RA, increased to 95% O2 Source Room air - Labs Labs: Laboratory Tests 03/26/23 03/26/23 03/26/23 13:19 13:19 13:19 WBC 10.1 RBC 5.08 Hgb 14.8 Hct 44.5 MCV 87.6 MCH 29.1 MCHC 33.3 RDW 15.5 H Plt Count 201 MPV 10.4 Neut # (Auto) 7.2 H Lymph # (Auto) 1.7 Sac # (Auto) 0.7 Eos # (Auto) 0.4 Baso # (Auto) 0.1 Absolute Nucleated RBC 0.00 Nucleated RBC % 0.0 PT 16.6 H INR 1.5 H APTT 40.0 H Sodium 139 Potassium 3.3 L Chloride 102 Carbon Dioxide 28 Anion Gap 9.0 BUN 15 Creatinine 0.9 Estimated GFR (MDRD) 84 L Glucose 106 H Calcium 9.4 Total Bilirubin 1.3 H AST 16 ALT 14 Alkaline Phosphatase 87 Total Protein 7.2 Albumin 4.1 Globulin 3.1 Albumin/Globulin Ratio 1.3 Lipase 21 Ethyl Alcohol < 10.0 - Rads (name of study) CT penaloza scan showing no traumatic findings. Bilateral elbow x-rays showing a right elbow effusion. Right knee x-ray negative for fracture. Relevant Findings:: Final report received, EMP independent interpretation of test PD Medical Decision Making - ED course ED course: 68-year-old gentleman who is anticoagulated due to a history of A-fib fell last night, the main area of pain is the left chest wall, but he also has injuries to both elbows and the right knee and potentially the head. As such, especially given his anticoagulated status he was sent for penaloza scan which was negative for acute traumatic findings. Also relevant x-rays of both elbows and the right knee were negative with the exception of a small effusion in the right elbow. He was comfortable after hydrocodone and requested a prescription for same. The patient was counseled as to the diagnosis and need for follow-up. I counseled the patient with regard to signs and symptoms that would necessitate an urgent reevaluation in the emergency department. They understand they are welcome to return at any time if worse or if not improving as expected. This document was made in part using voice recognition software. While efforts are made to proofread this documents, sound alike and grammatical errors may occur. Departure - Departure Disposition: 01 Home, Self Care Clinical Impression: Ground-level fall, Adequate anticoagulation on anticoagulant therapy Injury of head and neck Qualifiers: Encounter type: initial encounter Qualified Code(s): S09.90XA - Unspecified injury of head, initial encounter; S19.9XXA - Unspecified injury of neck, initial encounter Left elbow contusion Qualifiers: Encounter type: initial encounter Qualified Code(s): S50.02XA - Contusion of left elbow, initial encounter Contusion of right elbow Qualifiers: Encounter type: initial encounter Qualified Code(s): S50.01XA - Contusion of right elbow, initial encounter Contusion of right knee Qualifiers: Encounter type: initial encounter Qualified Code(s): S80.01XA - Contusion of right knee, initial encounter Chest wall contusion Qualifiers: Encounter type: initial encounter Laterality: left Qualified Code(s): S20.212A - Contusion of left front wall of thorax, initial encounter Condition: Good Record reviewed to determine appropriate education?: Yes Instructions: ED Contusion Chest Wall Prescriptions: HYDROcod/ACETAM 5/325 [Colbert 5/325] 1 - 2 tab PO Q6H PRN #10 tablet PRN Reason: Pain Comments: I sent a prescription electronically to the [facility] in [place]. Call your doctor to arrange a follow-up appointment, make the next available appointment. In the interim, return anytime if worse or if new symptoms develop. I am prescribing a short course of narcotic pain medication for you. These are potentially dangerous and addictive medications that should be used carefully. These medications may constipate you. Take an jvxz-jpe-xxmeauf stool softener (docusate) twice daily with plenty of water while taking these medications. If you go 24 hours without a bowel movement, take cjgr-hrk-krsaerc miralax, per package instructions. Do not drink or drive while taking these medications. If you received narcotic or sedating medications while in the emergency department, do not drive for 24 hours. Store this medication in a safe, secure place and out of reach of children. It is a violation of federal law to give or sell this medication to another person or to use in a manner other than prescribed. The ED will not refill narcotic prescriptions, including prescriptions lost or stolen. To dispose of unwanted medications: 1. [facility] provides a drop box for medication in pill form only (no liquids) 8:00 am to 4:30 p.m. Monday-Monday in the lobby of the [facility], [address] [place] [address]. Empty pills into ziplock bag before disposal. Call [phone] for information. 2.[facility] is a free service available to all [facility] residents. Go to [email or web address] Note that many narcotic pain relievers also contain Tylenol/acetaminophen. Please ensure that your total dose of acetaminophen from all sources does not exceed 3 g (3000 mg) per day. Forms: PCP List
[2023-03-26] MEDS ORDERED: iohexoL-300 100 ML VIAL ONE (13:19)
[2023-03-26 13:24] LABS: BASOPHILS # (AUTO) 0.1 10^3/uL (0.0-0.1); BASOPHILS % (AUTO) 1.2 %; EOSINOPHILS # (AUTO) 0.4 10^3/uL (0.0-0.7); EOSINOPHILS % (AUTO) 4.1 %; HCT - HEMATOCRIT 44.5 % (42.0-52.0); HGB - HEMOGLOBIN 14.8 g/dL (14.0-18.0); LYMPHOCYTES # (AUTO) 1.7 10^3/uL (1.5-3.5); LYMPHOCYTES % (AUTO) 16.4 %; MEAN CORPUSCULAR HEMOGLOBIN 29.1 pg (27.0-31.0); MEAN CORPUSCULAR HGB CONC 33.3 g/dL (32.0-36.0); MEAN CORPUSCULAR VOLUME 87.6 fL (80.0-94.0); MEAN PLATELET VOLUME 10.4 fL (7.4-11.4); MONOCYTES # (AUTO) 0.7 10^3/uL (0.0-1.0); MONOCYTES % (AUTO) 7.1 %; NEUTROPHILS # (AUTO) 7.2 10^3/uL (1.5-6.6); NEUTROPHILS % (AUTO) 70.9 %; PLT - PLATELET COUNT 201 10^3/uL (130-450); RED BLOOD COUNT 5.08 10^6/uL (4.70-6.10); RED CELL DISTRIBUTION WIDTH 15.5 % (12.0-15.0); WHITE BLOOD COUNT 10.1 x10^3/uL (4.8-10.8)
[2023-03-26 13:38] LABS: INR 1.5 (0.8-1.2); PT - PROTHROMBIN TIME 16.6 secs (9.9-12.6)
[2023-03-26 13:43] LABS: ALBUMIN 4.1 g/dL (3.2-5.5); ALBUMIN/GLOBULIN RATIO 1.3 (1.0-2.2); ALKALINE PHOSPHATASE 87 IU/L (42-121); ALT ALANINE AMINOTRANSFERASE 14 IU/L (10-60); AST ASPARTATE AMINOTRANSFERASE 16 IU/L (10-42); BILIRUBIN,TOTAL 1.3 mg/dL (0.2-1.0); BUN - BLOOD UREA NITROGEN 15 mg/dL (6-20); CALCIUM 9.4 mg/dL (8.5-10.3); CARBON DIOXIDE - CO2 28 mmol/L (21-32); CHLORIDE 102 mmol/L (101-111); CREATININE 0.9 mg/dL (0.6-1.3); ETOH - ETHANOL < 10.0 mg/dL; GFR - MDRD 84 (>89); GLUCOSE 106 mg/dL (74-104); LIPASE 21 U/L (11-82); POTASSIUM 3.3 mmol/L (3.5-4.5); SODIUM 139 mmol/L (135-145); TOTAL PROTEIN 7.2 g/dL (6.4-8.9)
[2023-03-26] MEDS ORDERED: iohexoL-300 100 ML VIAL IVP ONE (15:11)
--- NOTE | 2023-03-26 15:16 | CT Report ---
PROCEDURE: Head WO INDICATIONS: Head trauma, coagulopathy TECHNIQUE: Noncontrast 4.5 mm thick angled axial sections acquired from the foramen magnum to the vertex. For r adiation dose reduction, the following was used: automated exposure control, adjustment of mA and/or kV according to patient size. COMPARISON: Correlation is made with the accompanying imaging. FINDINGS: Image quality: Excellent. CSF spaces: Basal cisterns are patent. No extra-axial fluid collections. Ventricles are normal in size and shape. Brain: No midline shift. No intracranial masses or hemorrhage. Dias-white matter interface is norm al. Skull and face: Calvarium and visualized facial bones are intact, without suspicious lesions. Sinuses: Visualized sinuses and mastoids are clear. IMPRESSION: No intracranial hemorrhage is seen. No acute intracranial pathology. Reviewed by: Zachary Licea MD on 03/26/2023 2:14 PM [facility] Approved by: Zachary Licea MD on 03/26/2023 2:14 PM [facility] Station ID: [id number]
--- NOTE | 2023-03-26 15:18 | CT Report ---
PROCEDURE: Cervical Spine WO INDICATIONS: Neck trauma, midline tenderness TECHNIQUE: Noncontrast 3 mm thick sections acquired from the skull base to the T4 level. Sagittal and coronal r eformats were then constructed. For radiation dose reduction, the following was used: automated exp osure control, adjustment of mA and/or kV according to patient size. COMPARISON: 10/15/2022 Correlation is also made with the accompanying imaging. FINDINGS: Image quality: Technical quality Bones: No fractures or dislocations. Visualized superior ribs are intact. Focal degenerative change can be seen involving the C1-C2 interface anteriorly. There is moderate to severe disc space narrowing seen at C4-C5 and at C5-C6. Posterior directed endplate osteophytes can b e seen at C4-C5 and at C5-C6. Minimal anterolisthesis can be seen at C6-C7. Several levels of signifi cant facet arthropathy can be seen. Soft tissues: Prevertebral soft tissues are normal in thickness. No paravertebral hematomas. No ap ical pneumothoraces. Atherosclerotic calcification is seen. IMPRESSION: Negative for acute cervical spine fracture. Multiple levels of significant cervical spine degenerative change can be seen. Reviewed by: Zachary Licea MD on 03/26/2023 2:16 PM [facility] Approved by: Zachary Licea MD on 03/26/2023 2:16 PM [facility] Station ID: [id number]
--- NOTE | 2023-03-26 15:21 | XRAY Report ---
PROCEDURE: Elbow 3+V BL INDICATIONS: fall, knee/ elbow injs TECHNIQUE: 3 views of each elbow were acquired. COMPARISON: Correlation is made with the accompanying imaging. FINDINGS: Bones: No fractures or dislocations. No suspicious bony lesions. Generalized degenerative changes can be seen. Soft tissues: Soft tissue swelling can be seen adjacent to the olecranon on both sides. There is a m ild right elbow effusion. No suspicious soft tissue calcifications or masses. IMPRESSION: No acute bony abnormality. Mild right elbow joint effusion. Generalized soft tissue swelling seen adjacent to the olecranon on each side. Reviewed by: Zachary Licea MD on 03/26/2023 2:20 PM [facility] Approved by: Zachary Licea MD on 03/26/2023 2:20 PM [facility] Station ID: [id number]
--- NOTE | 2023-03-26 15:24 | CT Report ---
PROCEDURE: Chest W INDICATIONS: Chest trauma, blunt, high energy CONTRAST: 100ml omni 300 TECHNIQUE: After the administration of intravenous contrast, a CT scan of the chest was performed. Images were recorded and evaluated at appropriate window settings. Reformats: axial MIP of the chest, coronal and sagittal. For radiation dose reduction, the following was used: automated exposure control, adjustme nt of mA and/or kV according to patient size. COMPARISON: Correlation is made with the accompanying imaging. FINDINGS: Image quality: Excellent. Lungs and pleura: No consolidation. No pleural effusions. No pneumothorax. No suspicious pulmonary n odules which require follow up. Mediastinum: At least moderate coronary artery calcification can be seen. Heart size is normal. No pe ricardial effusion. No large vessel abnormality. No mediastinal adenopathy by size criteria. Chest wall and lower neck: Thyroid is unremarkable. No axillary or supraclavicular adenopathy by size . Bones: No aggressive osseous abnormality. Age-appropriate degenerative changes are seen. Sternotomy changes are noted. Upper Abdomen: Unremarkable. IMPRESSION: No displaced rib fracture or pneumothorax is seen. Additional findings: Sternotomy At least moderate coronary artery calcification Reviewed by: Zachary Licea MD on 03/26/2023 2:22 PM [facility] Approved by: Zachary Licea MD on 03/26/2023 2:22 PM [facility] Station ID: [id number]
--- NOTE | 2023-03-26 15:26 | CT Report ---
PROCEDURE: Abdomen/Pelvis W INDICATIONS: Abdominal trauma, blunt CONTRAST: 100ml omni 300 TECHNIQUE: After the administration of intravenous contrast, a CT scan of the abdomen and pelvis was performed. Images were recorded and evaluated at appropriate window settings. Reformats: coronal and sagittal. F or radiation dose reduction, the following was used: automated exposure control, adjustment of mA and /or kV according to patient size. COMPARISON: Correlation is made with the accompanying imaging. FINDINGS: Image quality: Excellent. Lung bases and heart: Sternotomy changes are noted. Liver: No solid mass. Diffuse fatty liver infiltration can be seen. Gallbladder and biliary tree: Within normal limits. Spleen: No splenomegaly. Pancreas: No pancreatic ductal dilation. Adrenals: No adrenal nodule. Kidneys and ureters: No hydronephrosis. No renal cystic lesion which requires follow up. No solid mas s. Bowel and peritoneum: No bowel distension. No pathologic free fluid. Lymph nodes: No central or retroperitoneal adenopathy. Vessels: No infrarenal aortic aneurysm. PELVIS Reproductive organs: Unremarkable. Bladder: No abnormal wall thickening, accounting for underdistention. Pelvic lymph nodes: No pelvic adenopathy by size criteria. Bones: No aggressive osseous abnormality. Mild dextroconvex scoliotic curvature is seen. Degenerative changes are seen throughout. Other: No significant ventral or inguinal hernia. IMPRESSION: No significant acute posttraumatic abnormality is seen. Additional findings: Sternotomy Fatty liver infiltration Dextroconvex scoliotic curvature Reviewed by: Zachary Licea MD on 03/26/2023 2:25 PM [facility] Approved by: Zachary Licea MD on 03/26/2023 2:25 PM [facility] Station ID: [id number]
--- NOTE | 2023-03-26 15:27 | XRAY Report ---
PROCEDURE: Knee 4+V RT INDICATIONS: fall, knee/ elbow injs TECHNIQUE: 4 views of the knee(s) were acquired. COMPARISON: Correlation is made with the accompanying imaging. FINDINGS: Bones: No fractures or dislocations. No suspicious bony lesions. Soft tissues: Soft tissue swelling is seen anterior to the right knee No significant joint effusion i s seen. Desiccation can be seen along the medial and lateral femoral tibial joint lines, which is att ributed to meniscal calcification. IMPRESSION: No acute bony abnormality is seen. Soft tissue swelling is seen anterior to the right knee. No significant joint effusion. If it would be helpful for clinical management decision making, please consider a dedicated, schedule d knee MRI for further evaluation (assuming that there is no contraindication). Reviewed by: Zachary Licea MD on 03/26/2023 2:26 PM [facility] Approved by: Zachary Licea MD on 03/26/2023 2:26 PM [facility] Station ID: [id number]
[2023-03-26 15:31] VITALS: O2SAT 96
[2023-03-26 15:48] VITALS: BP 149/102
== END 2023-03-26 15:45 | disposition home or self-care (01) ==
LOC: ED 12:48
DX: S09.90XA Unspecified injury of head, initial encounter (principal); S50.02XA Contusion of left elbow, initial encounter; S50.01XA Contusion of right elbow, initial encounter; S80.01XA Contusion of right knee, initial encounter; S20.212A Contusion of left front wall of thorax, initial encounter; W17.89XA Other fall from one level to another, initial encounter; Y93.89 Activity, other specified; Y92.008 Other place in unspecified non-institutional (private) residence as the place of occurrence of the external cause; I48.91 Unspecified atrial fibrillation; Z79.01 Long term (current) use of anticoagulants; F17.200 Nicotine dependence, unspecified, uncomplicated
CPT/HCPCS: 36415; 70450; 71260; 72125; 73080; 73564; 74177; 80053; 80320; 83690; 85025; 85610; 85730; 99284; A9270; Q9967

== ENCOUNTER 2023-10-31 11:51 | Outpatient (CLI) | payer OTHER | END 2023-10-31 23:59 | disposition short-term general hospital (02) | LOC: EMS 11:51 | DX: R06.02 Shortness of breath (principal); R53.81 Other malaise; R50.9 Fever, unspecified; R53.1 Weakness; R11.2 Nausea with vomiting, unspecified; R00.0 Tachycardia, unspecified | CPT/HCPCS: A0425; A0429 ==